=== PATIENT | male | born 1945 | race Caucasian/White ===

== ENCOUNTER 2016-11-10 10:59 | Inpatient (IN) | payer MEDICARE, BC ==
[2016-10-21 10:56] VITALS: Ht 168.9 cm; Wt 95.0 kg
[2016-10-21 11:01] VITALS: BP_SYST 142; RESP 20; TEMP 98.2
[2016-11-10] VITALS (16 sets, daily range): BP systolic 94–163; RESP 12–20; TEMP 97.5–98.6
[~2016-11-10] VITALS: Ht 168.9 cm; Wt 95.0 kg
[~2016-11-10 10:59] MED LIST: ACETAMINOPHEN 1,000 MG/100 ML IV ONE; BACITRACIN 50,000 UNITS INJ IRRIG ONE; DEXAMETHASONE 4 MG/ML VIAL IV ONE; DILAUDID 1 MG/ML AMP IV ONE; FENTANYL 100 MCG/2 ML AMP IV ONE; GLYCOPYRROLATE 0.2 MG/ML VIAL IV ONE; NEOSTIGMINE 10 MG/10 ML VIAL IV ONE; ONDANSETRON 4 MG VIAL IV PUSH ONE; PROPOFOL 20 ML PER ML IV ONE; ROCURONIUM 50 MG VIAL IV ONE
[2016-11-10] MEDS ORDERED: TRANEXAMIC ACID IV ONE ×4 (11:05)
[2016-11-10] MEDS ORDERED: CEFAZOLIN 2,000 MG in SODIUM CHLORIDE 0.9% 100 ML IV ONE (11:05)
[2016-11-10] MEDS ORDERED: ROPIVACAINE 0.5% 139 MG, EPINEPHrine 1:1,000 0.2 MG, KETOROLAC INJ 30 MG, MORPHINE 10 MG SUBQ ONE ×4 (11:05)
[2016-11-10] MEDS ORDERED: SODIUM CHLORIDE 0.9% IV ONE ×4 (11:05)
[2016-11-10] MEDS ORDERED: GLYCOPYRROLATE 0.2 MG/ML VIAL IV ONE (11:25)
[2016-11-10] MEDS ORDERED: MIDAZOLAM 2 MG/2 ML INJ IV ONE (11:25)
[2016-11-10] MEDS ORDERED: LACT RINGERS 1,000 ML IV SCH (11:25)
[2016-11-10] MEDS ORDERED: LIDOCAINE 1% BUFFERED 1 ML SYR INTRADERM PRN (11:25)
[2016-11-10] MEDS ORDERED: DILAUDID 1 MG/ML AMP IV PRN (13:25)
[2016-11-10] MEDS ORDERED: MORPHINE 2 MG/ML SYR IV PRN ×2 (13:25→14:35)
[2016-11-10] MEDS ORDERED: OXYCODONE 5 MG TAB PO PRN (13:25)
[2016-11-10] MEDS ORDERED: MORPHINE 4 MG/ML SYR IV PRN ×2 (13:25→14:35)
[2016-11-10] MEDS ORDERED: ONDANSETRON 4 MG VIAL IV PRN ×2 (13:25→14:35)
[2016-11-10] MEDS ORDERED: MEPERIDINE 25 MG/ML IV PRN (13:25)
[2016-11-10] MEDS ORDERED: ONDANSETRON 4 MG TAB PO PRN (14:35)
[2016-11-10] MEDS ORDERED: ZOLPIDEM 5 MG TAB PO PRN (14:35)
[2016-11-10] MEDS ORDERED: D5-1/2-NS W/KCL 20MEQ/L 1,000 ML IV SCH (14:35)
[2016-11-10] MEDS ORDERED: MAG HYDROX 30 ML UDC PO PRN (14:35)
[2016-11-10] MEDS ORDERED: SALINE FLUSH 10 ML FLUSH PRN (14:35)
[2016-11-10] MEDS: MULTIVITS/MINERALS (THERAGRAN M) TAB PO SCH (15:36)
[2016-11-10] MEDS: KETOROLAC 30 MG/ML VIAL IV PRN ×2 (16:00→22:07)
[2016-11-10] MEDS: CEFAZOLIN 2,000 MG in SODIUM CHLORIDE 0.9% 100 ML IV SCH (18:26)
[2016-11-10] MEDS: SALINE FLUSH 10 ML FLUSH SCH (20:00)
[2016-11-10] MEDS: DOCUSATE SOD 100 MG CAP PO SCH (20:55)
[2016-11-10] MEDS: SENNA 8.6 MG TAB PO SCH (20:55)
[2016-11-10] MEDS ORDERED: PANTOPRAZOLE 40 MG TAB PO SCH (21:00)
[2016-11-10] MEDS ORDERED: DOCUSATE SOD 100 MG CAP PO SCH (21:00)
[2016-11-11] MEDS: CEFAZOLIN 2,000 MG in SODIUM CHLORIDE 0.9% 100 ML IV SCH ×3 (00:03→11:20)
[2016-11-11 03:15] VITALS: BP_SYST 112; RESP 18; TEMP 98.1
[2016-11-11] MEDS ORDERED: SODIUM CHLORIDE 0.9% FLUSH BAG 500 ML IV SCH (06:00)
[2016-11-11] MEDS ORDERED: FONDAPARINUX 2.5 MG SYR SUBQ SCH (06:00)
[2016-11-11 07:31] VITALS: BP_SYST 140; RESP 20; TEMP 98.1
[2016-11-11] MEDS: DOCUSATE SOD 100 MG CAP PO SCH (08:54)
[2016-11-11] MEDS: MULTIVITS/MINERALS (THERAGRAN M) TAB PO SCH (08:54)
[2016-11-11] MEDS: SALINE FLUSH 10 ML FLUSH SCH (08:54)
[2016-11-11] MEDS: SENNA 8.6 MG TAB PO SCH (08:54)
[2016-11-11] MEDS ORDERED: MAG HYDROX 30 ML UDC PO SCH ×2 (09:00→20:00)
[2016-11-11] MEDS ORDERED: POLYETHYLENE GLYCOL 17 GM PACKET PO SCH (09:00)
[2016-11-11] MEDS: KETOROLAC 30 MG/ML VIAL IV PRN (09:53)
[2016-11-11 10:53] VITALS: BP_SYST 140; RESP 20; TEMP 98.1
[2016-11-11] MEDS ORDERED: BISACODYL 10 MG SUPP RECTAL PRN (15:50)
[2016-11-11] MEDS ORDERED: FLEET ENEMA 132 ML BTL RECTAL PRN (15:50)
== END 2016-11-11 12:20 | disposition home or self-care (01) | DRG 470 ==
LOC: ENRESERVTM → ENRESERVDT → SDS 10:59 → ENPENDDIS 10:59 → 2NO 15:32
PROVIDERS: ADMIT Internal Medicine; ATTEND Internal Medicine
PROC: 0SRB04A Replacement of Left Hip Joint with Ceramic on Polyethylene Synthetic Substitute, Uncemented, Open Approach (ICD-10-PCS; principal; 2016-11-10 12:59)
CPT/HCPCS: 76000; 80048; 85014; 85018; 86850; 86900; 86901; 94762; 94799